=== PATIENT | female | born 1995 | race American Indian/Alaskan Native ===

== ENCOUNTER 2019-04-08 12:26 | Emergency (ER) | payer SELFPAY ==
[2019-04-08 13:07] VITALS: BP 169/78
--- NOTE | 2019-04-08 13:52 | XRay Report ---
LEFT KNEE, 3 views: History: Knee pain. The bony architecture is intact without evidence of fracture or dislocation. No significant soft tissue abnormality is seen. IMPRESSION: Normal left knee.
[2019-04-08] MEDS ORDERED: TORADOL IM ONE (14:45)
--- NOTE | 2019-04-08 14:47 | Emergency Department Report ---
ED Back Pain/Injury HPI - General Chief Complaint: Extremity Injury, Lower Stated Complaint: KNEE SWOLLEN Time Seen by Provider: 04/08/19 14:42 Source: patient Limitations: Physical Limitation - History of Present Illness Initial Comments: Patient is a 31-year-old female comes to the ER with left knee pain after falling 4 days ago. Patient reports that this is a ground level fall. It was witnessed. There is no other injury. Patient is morbidly obese at 96kg. Vital signs are stable and she is ambulatory on admission. Patient has not done anything to make her pain better or worse after the fall. She states that movement makes the pain patient. - Related Data Previous Rx's Medication Instructions Recorded Last Taken Type Ketorolac [Toradol] 10 mg PO Q6H PRN #12 tablet 04/08/19 Unknown Rx Allergies Allergy/AdvReac Type Severity Reaction Status Date / Time diphenhydramine Allergy Unknown Verified 03/01/19 15:43 [From Jane] ED Review of Systems ROS: Stated complaint: KNEE SWOLLEN Other details as noted in HPI Comment: All other systems reviewed and negative ED Past Medical Hx - Past Medical History morbid obesity ED Back Pain Physical Exam - Exam General: Vital signs noted. No distress. Alert and acting appropriately. left ankle wnl left thigh wnl no bruising to knee no effusion on exam- limited by body habitus no pain over joint lines dp plus 2 bilaterally Back/Abdomen: No Abdominal Tenderness, No Perithoracic Tenderness, No Perilumbar Tenderness, No Sacroiliac Tenderness, No Flank Tenderness, No Straight Leg Raise Pain Neuro: Yes Normal Sensation, Yes Normal DTR's, Yes Normal Gait, No Motor Weakness ED Course Vital Signs 04/08/19 13:04 Temperature 98.6 F Pulse Rate 96 H Respiratory 18 Rate Blood Pressure 169/78 O2 Sat by Pulse 98 Oximetry Ed Back Pain Tests - Tests Tests: Normal X Rays ED Medical Decision Making - Radiology Data Radiology results: report reviewed, image reviewed - Medical Decision Making xray neg ambulatory neurovasc intact toradol IM dc home with ortho follow up and rx for toradol Vital Signs 04/08/19 13:04 Temperature 98.6 F Pulse Rate 96 H Respiratory 18 Rate Blood Pressure 169/78 O2 Sat by Pulse 98 Oximetry Critical care attestation.: If time is entered above; I have spent that time in minutes in the direct care of this critically ill patient, excluding procedure time. ED Disposition Clinical Impression: Contusion of knee, Fall from ground level, Morbid obesity Disposition: - TO HOME OR SELFCARE Is pt being admited?: No Does the pt Need Aspirin: No Condition: Stable Instructions: Knee Pain (ED) Additional Instructions: DIET TOLERATED MEDS ORDERED TODAY IN ER FOLLOW INSTRUCTIONS ON THE BOTTLE FOLLOW UP PCP WITHIN 48 HOURS TO ENSURE YOU ARE GETTING BETTER ACTIVITY TOLERATED MOTRIN OR TYLENOL FOR PAIN OR FEVER RETURN TO THE ER FOR WORSENING SYMPTOMS NOT RELIEVED BY YOUR MEDICATIONS. Referrals: JAMES CALDERON MD [Primary Care Provider] - 3-5 Days COBY BARNEY MD [Staff Physician] - 3-5 Days Time of Disposition: 14:43
== END 2019-04-08 15:10 | disposition home or self-care (01) ==
LOC: ED 12:26
DX: S80.02XA Contusion of left knee, initial encounter (principal); W18.30XA Fall on same level, unspecified, initial encounter; Y93.89 Activity, other specified; Y92.89 Other specified places as the place of occurrence of the external cause; Y99.8 Other external cause status
CPT/HCPCS: 73560; 96372; 99283; J1885

== ENCOUNTER 2020-06-10 13:23 | Emergency (ER) | payer SELFPAY ==
[2020-06-10 13:58] VITALS: BP 153/76
[2020-06-10 14:49] LABS: Bacteria,Urine 1+ /HPF (Negative); Bilirubin,Urine NEG (Negative); Blood,Urine NEG (Negative); Color,Urine Yellow (Yellow); Mucus,Urine FEW /HPF; Protein,Urine <15 mg/dL mg/dL (Negative); Urobilinogen,Urine < 2.0 mg/dL (<2.0)
[2020-06-10] MEDS ORDERED: ACETAMINOPHEN 500 MG TAB PO ONE (19:00)
[2020-06-10] MEDS ORDERED: ONDANSETRON 4 MG ODT TAB PO ONE (19:00)
[2020-06-10] MEDS ORDERED: ACETAMINOPHEN 500 MG TAB ONE (19:00)
[2020-06-10] MEDS ORDERED: ONDANSETRON 4 MG ODT TAB ONE (19:00)
[2020-06-10] MEDS ORDERED: traMADol 50 MG TAB PO ONE (19:26)
[2020-06-10] MEDS ORDERED: CYCLOBENZAPRINE 10 MG TAB PO ONE (19:26)
--- NOTE | 2020-06-10 19:34 | Emergency Department Report ---
ED Extremity Problem HPI - General Chief complaint: Back Pain/Injury Stated complaint: PAIN IN SIDE AND HIP Time Seen by Provider: 06/10/20 19:02 Source: patient Mode of arrival: Ambulatory Limitations: No Limitations - History of Present Illness Initial comments: Patient is a 24-year-old female presents emergency room with complaints of right-sided hip pain that began 3 days ago. She states that she woke up with the pain. She states that she often walks uphill and walks up the stairs. She states that she wears slide on shoes. She denies any fall or injury. She denies any nausea, vomiting, diarrhea, fever, urinary symptoms, abdominal pain, leg swelling, calf pain. No past medical history. Allergy to Benadryl. Last menstrual cycle May 16. Severity scale (0 -10): 4 - Related Data Previous Rx's Medication Instructions Recorded Last Taken Type Ketorolac [Toradol] 10 mg PO Q6H PRN #12 tablet 04/08/19 Unknown Rx Menthol/Camphor [Medimont [place] 1 applicatio TP BID #1 oint...g. 06/10/20 Unknown Rx Ointment] Naproxen 500 mg PO BID PRN #20 tablet 06/10/20 Unknown Rx methOCARBAMOL [Robaxin TAB] 500 mg PO BID PRN #12 tab 06/10/20 Unknown Rx Allergies Allergy/AdvReac Type Severity Reaction Status Date / Time diphenhydramine Allergy Unknown Verified 03/01/19 15:43 [From Benadryl] ED Review of Systems ROS: Stated complaint: PAIN IN SIDE AND HIP Other details as noted in HPI Comment: All other systems reviewed and negative ED Past Medical Hx - Past Medical History Additional medical history: morbid obesity - Surgical History Hx Cholecystectomy: Yes (2013) Additional Surgical History: c section x 4 - Social History Smoking Status: Never Smoker - Medications Home Medications: Home Medications Medication Instructions Recorded Confirmed Last Taken Type Ketorolac [Toradol] 10 mg PO Q6H PRN #12 tablet 04/08/19 Unknown Rx Menthol/Camphor [Medimont [place] 1 applicatio TP BID #1 oint...g. 06/10/20 Unknown Rx Ointment] Naproxen 500 mg PO BID PRN #20 tablet 06/10/20 Unknown Rx methOCARBAMOL [Robaxin TAB] 500 mg PO BID PRN #12 tab 06/10/20 Unknown Rx ED Physical Exam - General Limitations: No Limitations General appearance: alert, in no apparent distress - Head Head exam: Present: atraumatic, normocephalic - Eye Eye exam: Present: normal appearance - ENT ENT exam: Present: mucous membranes moist - Extremities Exam Extremities exam: Present: other (right lateral hip ttp, FROM of the RLE with discomfort upon flexion of the right hip, no leg edema, no calf ttp, neurovascularly intact, no deformity ) - Neurological Exam Neurological exam: Present: alert, oriented X3 - Psychiatric Psychiatric exam: Present: normal affect, normal mood - Skin Skin exam: Present: warm, dry, intact ED Course Vital Signs 06/10/20 06/10/20 13:54 19:50 Temperature 98.2 F Pulse Rate 71 75 Respiratory 18 17 Rate Blood Pressure 153/76 O2 Sat by Pulse 100 100 Oximetry ED Medical Decision Making - Medical Decision Making Patient is a 24-year-old female presents emergency room with complaints of right-sided hip pain that began 3 days ago. She states that she woke up with the pain. She states that she often walks uphill and walks up the stairs. She states that she wears slide on shoes. She denies any fall or injury. She denies any nausea, vomiting, diarrhea, fever, urinary symptoms, abdominal pain, leg swelling, calf pain. No past medical history. Allergy to Benadryl. Last menstrual cycle May 16. VSS. on exam: right lateral hip ttp, FROM of the RLE with discomfort upon flexion of the right hip, no leg edema, no calf ttp, neurovascularly intact, no deformity. Patient given medications and symptoms improved. Patient has had no traumatic injury, she is ambulatory, no need for emergent imaging at this time, patient will be referred to primary care physician and orthopedic. She has no clinical signs of DVT, no signs of infection. Symptoms could be related to IT band syndrome versus muscle strain versus bursitis. Patient given prescription for Robaxin, naproxen, Medimont balm ointment. Advised patient please use medication as prescribed. do not drive or operate heavy machinery while taking muscle relaxer. may use ice for 15 minutes at a time, rest, elevation. follow up with a primary care doctor and orthopedic. return to the emergency room for any new or worsening symptoms. Critical care attestation.: If time is entered above; I have spent that time in minutes in the direct care of this critically ill patient, excluding procedure time. ED Disposition Clinical Impression: Acute right hip pain Disposition: TO HOME OR SELFCARE Is pt being admited?: No Does the pt Need Aspirin: No Condition: Stable Instructions: Arthralgia (ED) Additional Instructions: please use medication as prescribed. do not drive or operate heavy machinery while taking muscle relaxer. may use ice for 15 minutes at a time, rest, elevation. follow up with a primary care doctor and orthopedic. return to the emergency room for any new or worsening symptoms. Prescriptions: Naproxen 500 mg PO BID PRN #20 tablet PRN Reason: pain methOCARBAMOL [Robaxin TAB] 500 mg PO BID PRN #12 tab PRN Reason: pain Menthol/Camphor [Medimont [place] Ointment] 1 applicatio TP BID #1 oint...g. Referrals: ENDY VARELA MD [Staff Physician] - 2-3 Days [facility] [Provider Group] - 2-3 Days [facility] [Outside] - 2-3 Days COBY BARNEY MD [Staff Physician] - 2-3 Days [facility] [Provider Group] - 2-3 Days Forms: Work/School Release Form(ED) Time of Disposition: 19:32 Print Language: MONTENEGRIN
== END 2020-06-10 19:50 | disposition home or self-care (01) ==
LOC: ED 13:23
DX: M25.551 Pain in right hip (principal); E66.01 Morbid (severe) obesity due to excess calories; Z68.44 Body mass index [BMI] 60.0-69.9, adult; Z90.49 Acquired absence of other specified parts of digestive tract; Z98.890 Other specified postprocedural states; Z79.899 Other long term (current) drug therapy
CPT/HCPCS: 81001; 99283; Q0162